=== PATIENT | male | born 2000 | race African-American/Black ===

== ENCOUNTER 2018-07-31 22:01 | Emergency (ER) | payer MEDICAID, SELFPAY ==
[2018-07-31] MEDS ORDERED: Ibuprofen 600 MG TAB ONE (22:27)
== END 2018-07-31 22:41 | disposition home or self-care (01) ==
LOC: SCSER 22:01
DX: J06.9 Acute upper respiratory infection, unspecified (principal)
CPT/HCPCS: 87081; 87430; 87804; 99283